=== PATIENT | female | born 1935 ===

== ENCOUNTER 2019-10-30 13:16 | Inpatient (IN) | payer MEDICARE, OTHER ==
[2019-10-30 17:49] VITALS: BP 157/73
[2019-10-30] MEDS ORDERED: Magnesium Hydroxide (MOM) 30 mL UDC PO PRN (17:52)
[2019-10-30] MEDS ORDERED: Maalox 30 mL Cup PO PRN (17:52)
[2019-10-30] MEDS: Atorvastatin Calcium 10 MG TAB PO SCH (20:59)
[2019-10-31] MEDS: Multivitamin Tab PO SCH (08:27)
[2019-10-31 13:50] LABS: CHOLESTEROL 313 mg/dL (<200); HDL -HIGH DENSITY LIPOPROTEIN 49 mg/dL (23-92); TRIGLYCERIDES 216 mg/dL (<150)
--- NOTE | 2019-10-31 14:49 | Psychiatric Evaluation ---
DATE OF SERVICE: 10/31/2019 IDENTIFYING DATA: The patient is an 84-year-old woman living by herself. Information obtained by directly interviewing the patient as well as reviewing the admission papers. JUSTIFICATION OF HOSPITALIZATION: The patient is admitted on a voluntary basis in view of her acute psychosis, confusion and disorientation. CHIEF COMPLAINT: "I don't know, they brought me in here." HISTORY OF PRESENT ILLNESS: This is the first psychiatric hospitalization for this patient who is reported to have been medicated with 5 mg 3 times a day of the diazepam and 50 mg of the Seroquel at night time. The patient is reporting that she has been feeling very dizzy and has been losing control and has been forgetting a lot. The patient during the interview has been repeating the same thing and has been very confused. The patient has been having difficult time to recall what type of work she was doing and then who she was living with, that tells me that most of her family is in [place] in [place]. Sleep and appetite prior to the hospitalization are reported to be fair. PAST PSYCHIATRIC HISTORY: The patient denies any prior psychiatric hospitalizations or treatment. MEDICAL HISTORY: Physical examination is requested, done by Dr. Bill. SUBSTANCE ABUSE HISTORY: None. SOCIAL HISTORY: The patient is living by herself. PHYSICAL OR SEXUAL ABUSE HISTORY: None. LEGAL PROBLEMS: None at this time. MENTAL STATUS EXAMINATION: The patient is an 84-year-old woman looking her stated age, cooperative. Eye contact is fair. Speech is noted to be coherent, but the patient goes on a tangent and the patient is acutely anxious, confused and disoriented. The patient is aware that she is in the hospital, but could not figure it out why and how long she has been in here. Attention span and concentration are noted to be poor at this time. Short-term memory is noted to be very poor. Long-term memory seems to be fair. The patient is stating that she is working with the lead worker of housekeeping and laundry and could not figure it out where they have gone. The patient is not suicidal or homicidal at this time, but the patient has paranoia, but denies any command hallucinations. No visual hallucinations are noted. The patient appears to be of average intelligence. DIAGNOSTIC IMPRESSION: AXIS I: Psychotic disorder, not otherwise specified. AXIS IB: Dementia and behavioral changes secondary trait. AXIS II: None. AXIS III: Hyperlipidemia, hypertension. IMMEDIATE TREATMENT PLAN: The patient's Seroquel is going to be decreased from 50 mg to 25 mg and the diazepam is going to be decreased from 5 mg 3 times a day to 2 mg twice a day and the patient is going to be closely monitored. I encouraged her to verbalize the concerns rather than to act out. Once stabilized, the patient is going to be discharged to the long-term facility. [facility]# [id number]
--- NOTE | 2019-10-31 14:56 | History and Physical ---
History of Present Illness - HPI Chief Complaint: Psychosis HPI: * Patient transferred from [facility] * Diagnoses with Acute Psychosis due to Advanced Dementia Vital Signs: Last Vital Signs Temp 97.9 F 10/31/19 05:53 Pulse 62 10/31/19 08:27 Resp 18 10/31/19 05:53 BP 140/74 10/31/19 08:27 Pulse Ox 97 10/31/19 05:53 Past Medical History Cardiovascular: Report: HTN, Hyperlipidemia Pulmonary: Report: No Pertinent Hx OUT OF TOWN COLLECTION CLERK: Report: Dementia GI: Report: No Pertinent Hx Psych: Report: Psychosis Musculoskeletal: Report: No Pain Rheumatologic: Report: No pertinent Hx Infectious Disease: Report: No Pertinent Hx Renal/: Report: No Pertinent Hx Endocrine: Report: No Pertinent Hx Dermatology: Report: No Pertinent Hx - Past Surgical History Past Surgical History: No pertinent Hx Family Medical History - Family Member Mother History Unknown: Yes Social History Smoke: No Alcohol: None Drugs: None Lives: [facility] - Medications Home Medications: Home Medication Medication Instructions Recorded Type Atorvastatin Calcium [Lipitor] PO HS 10/30/19 History Diazepam [Valium] 5 mg PO TID 10/30/19 History Losartan Potassium 50 mg PO 10/30/19 History Metoprolol Tartrate [Lopressor] 50 mg PO Q12HR 10/30/19 History QUEtiapine Fumarate [SEROquel] 50 mg PO HS 10/30/19 History - Allergies Allergies/Adverse Reactions: Allergies Allergy/AdvReac Type Severity Reaction Status Date / Time No Known Allergies Allergy Unverified 10/30/19 17:48 Review of Systems - Review of Systems Constitutional: Report: No Significant Eyes: Report: No Significant ENT: Report: No Significant Respiratory: Report: No Significant Cardiovascular: Report: No Significant Gastrointestinal: Report: No Significant Genitourinary: Report: No Significant Musculoskeletal: Report: No Significant Skin: Report: No Significant Neurological: Report: No Significant Physical Exam - Physical Exam HEENT: Report: Ears Nose Throat within normal limits, Pharnyx within normal limits Neck: Report: Within normal limits Cardiovascular Systems: Report: Regular, Rate and Rhythm, no murmurs noted Respiratory: Report: Clear to Auscultation of lung espinosa, Breath Sounds are within normal limits Abdomen: Report: Non-tender to palpation, Bowel Sounds are within normal limits Back: Report: Inspection of back is within normal limits. Extremities: Report: Non-tender to palpation., Patient had full range of motion , No pedal edema was noted on inspection Skin: Report: Color of skin is within normal limits, Warm, Dry, No Rashes noted of the skin Neuro/Psych: Report: CN II-XII intact, No motor deficit, No sensory deficit, No new focal deficits - Lab Results All Lab Results last 24 hours: Laboratory Results - last 24 hr 10/30/19 12:11 Triglycerides 216 H Cholesterol 313 H LDL Cholesterol Direct 216 H HDL Cholesterol 49 - Assessment Assessment: * Acute Psychosis * Dementia * Hypertension * Hyperlipidemia - Plan Plan: * Admitted to Geropsych Unit * Continue home meds * Obtain Psych Consult * Obtain labs Cranial Nerve Assessment - CRANIAL NERVES alcohol swab:: Yes Distinguishes movements in peripheral field.:: Yes up, down, sideways:: Yes on forehead, cheeks and chin, chews symmetrically:: Yes FACIAL VII: upper: Frowns Symmetrically:: Yes FACIAL VII: Lower: Smiles Symmetrically:: Yes both ears:: Yes GLOSS-PHARYNGEAL IX: Has gag reflex:: Yes VAGUS X: Can make guttural sounds:: Yes ACCESSORY XI: Shrugs shoulders symmetrically:: Yes tremors or fasciculation's:: Yes - MOTOR spasticity, cogwheel, atrophy, tremor, asterixis, other: Yes - COORDINATION Finger to nose, heel to knowles, RONNY, gait, Romberg: Yes - SENSORY signs, Brudzinski, Kernig, neck rigidity:: Yes - REFLEXES Brachioradials Right:: Yes Brachioradials Left:: Yes Biceps Right:: Yes Biceps Left:: Yes Triceps Right:: Yes Triceps Left:: Yes Knee Right:: Yes Knee Left:: Yes Ankle Right:: Yes Ankle Left:: Yes Babinski Right:: No Babinski Left:: No
[2019-10-31] MEDS: Atorvastatin Calcium 10 MG TAB PO SCH (21:33)
[2019-11-01] MEDS: Multivitamin Tab PO SCH (08:45)
[2019-11-01 11:15] LABS: POTASSIUM SERUM 4.1 mmol/L (3.5-5.1); RED BLOOD COUNT 5.34 MIL/uL (4.2-6.2); WHITE BLOOD COUNT 6.9 K/uL (4.8-10.8)
[2019-11-01 11:16] LABS: BILIRUBIN,TOTAL 0.6 mg/dL (0.0-1.0); CALCIUM SERUM 9.6 mg/dL (8.4-10.2); CREATININE - SERUM 0.84 mg/dL (0.70-1.30); TOTAL PROTEIN,SERUM 7.2 g/dL (6.4-8.3)
[2019-11-01 11:22] LABS: HEMATOCRIT 43.3 % (41.0-60); HEMOGLOBIN 13.8 gm/dL (12-16); MEAN CELL VOLUME 81.1 fl (81-100); MEAN CORPUSCULAR HEMOGLOBIN 25.9 pg (27.0-31.0)
[2019-11-01 11:23] LABS: % BASOPHILS 0.4 % (0.0-2.0); % EOSINOPHILS 1.6 % (0.0-5.0); % LYMPHOCYTES 38.9 % (20.0-50.0); % MONOCYTES 3.7 % (2.0-10.0); % NEUTROPHILS 55.4 % (40.0-80.0); EOSINOPHILE ABSOLUTE 0.1 Th/cmm (0.1-0.4); LYMPHOCYTE ABSOLUTE 2.7 Th/cmm (1.5-3.0); MEAN CORPUSCULAR HGB CONC 31.9 pg (28.0-36.0); MONOCYTE ABSOLUTE 0.3 Th/cmm (0.3-1.0); NEUTROPHILE ABSOLUTE 3.8 Th/cmm (1.8-8.0); PLATELET COUNT 255 Th/cmm (150-400)
--- NOTE | 2019-11-01 12:14 | Consultation ---
DATE OF CONSULTATION: 11/01/2019 TYPE OF CONSULTATION: Psychology HISTORY OF PRESENT ILLNESS: The patient is an 84-year-old female. The following is by review of the record as well as by the patient's self-report. The patient is being admitted on a voluntary basis due to psychosis, confusion and disorientation. According to record review, the patient lives by herself; however, the record indicates the patient is . Upon interview, the patient states that she does not know why she was brought into the hospital. The patient does report that she had been getting dizzy. Staff reports the patient is confused and forgetful. During the interview, the patient continued to repeat the same response to different clinical questions. She denied any suicidal ideation, plan or intention. PAST MEDICAL HISTORY: Please see history and physical by Dr. Bill. PAST PSYCHIATRIC HISTORY: Records are unavailable. Details are unknown. SUBSTANCE ABUSE HISTORY: The patient denied any history of alcohol, tobacco, or drug use. BRIEF PSYCHOSOCIAL HISTORY: According to the patient, she is ; however, the patient was unable to provide any information as to where she lives or who she lives with. The patient did not answer questions about having any children or grandchildren. The patient states that she is retired. She did not answer the questions about her previous occupational history or educational history. The patient did not answer questions about history of physical or sexual abuse or current legal problems. The patient states that she is a [employer], but not devout. MENTAL STATUS EXAMINATION: The patient appears to be older than her stated age. The patient's attitude is cooperative. Eye contact is fair. The patient is reaching out with her hand touching or attempting to touch this food writer. Speech is slow and soft. The patient is responding somewhat coherently to the clinical questions, but is confused. Thought process shows to be tangential. Mood is euthymic. Affect is broad. The patient denies any suicidal ideation, plan or intention. She denied any auditory or visual hallucinations or any delusions. The patient does not know why she is being hospitalized. The patient's behavior has been redirectable. Impulse control is intact. Concentration is poor. The patient is unable to sustain focus and attention. Short term memory is poor. Long-term memory seems to be poor. Sensorium is alert and oriented to self and place only. The patient seems to be of average intelligence. There are apparent cognitive deficits with respect to memory and ability to concentrate. The patient is distractible. The patient did not participate in the interpretation of proverbs. Insight is poor. Judgment is compromised. DIAGNOSTIC IMPRESSION: AXIS I: 1. Provisional diagnosis of psychotic disorder, not otherwise specified. 2. Provisional diagnosis of dementia with behavioral disturbance. AXIS II: Deferred. AXIS III: Per Dr. Bill. TREATMENT PLAN: The patient has been seen by Dr. Meyers for psychiatric evaluation and for the management of the patient's psychotropic medications. According to the attending psychiatrist, the patient's Seroquel is being decreased from 50 mg to 25 mg and the diazepam is going to be decreased from 5 mg 3 times a day to 2 mg a day. We will provide reality orientation, differentiation and integration. We will provide coping strategies for phase of life issues. We will provide motivational enhancement for the patient to become compliant and stay compliant with all aspects of her care and treatment. The patient's placement will be discussed with the attending psychiatrist, disease case manager and the family. Of note, the patient is being encouraged for possible placement in a intermediate facility versus returning home. We will follow up in 2-3 days to continue the present treatment if the patient remains admitted on the unit and is able to benefit from psychology services. Thank you, Dr. Meyers for this consult and the opportunity to participate with you in this patient's care. JOB# [id number] AURELIO
--- NOTE | 2019-11-01 16:44 | Progress Notes ---
DATE: 11/01/2019 SUBJECTIVE: Staff was spoken to. The patient is interviewed. Mood is noted to be depressed. Affect is constricted. The patient is very tearful and crying this morning. Insight and judgment at this time are noted to be still impaired. Impulse control is noted to be limited. Coping skills are noted to be limited. The patient has been having difficult time to cope with the stress. No side effects to the medications are noted. The patient has been presenting with anxiety and is stating that she does not have any family over here. ASSESSMENT: The patient is still depressed and demented. PLAN: To continue the patient with the supportive therapy and start the patient with the Lexapro 5 mg in the morning for her depression and closely monitor the patient. JOB# [id number]
[2019-11-01] MEDS: Atorvastatin Calcium 10 MG TAB PO SCH (21:02)
[2019-11-02] MEDS: Multivitamin Tab PO SCH (08:32)
[2019-11-02] MEDS: Escitalopram Oxalate 5 mg Tab PO SCH (08:34)
--- NOTE | 2019-11-02 11:45 | Progress Notes ---
DATE: 11/02/2019 SUBJECTIVE: Staff was spoken to. The patient is interviewed. Mood is noted to be anxious and depressed. Affect is constricted. Insight and judgment at this time are noted to be still impaired. Impulse control is noted to be limited. Coping skills are noted to be limited. The patient has been having difficult time to cope with the stress. The patient was initially on 5 mg 3 times a day of Valium. I am trying to slowly taper the Valium; although the patient is currently on 2 mg in the morning. No side effects are noted. The patient is still depressed and confused. The patient is currently placed on Lexapro. The patient has been able to tolerate the medications. The patient has no place to return to. The patient is also very forgetful at this time. PLAN: To continue the patient with the supportive therapy and continue current medications. JOB# [id number]
--- NOTE | 2019-11-02 13:43 | Internal Medicine Prog Note ---
Internal Medicine Subjective - Subjective Service Date: 11/02/19 Patient seen and examined:: without staff Patient is:: awake Per staff patient has:: no adverse event, no episodes of fall Internal Medicine Objective - Results Result Diagrams: 11/01/19 09:49 11/01/19 09:49 Recent Labs: Laboratory Last Values WBC 6.9 K/uL (4.8-10.8) 11/01/19 09:49 RBC 5.34 MIL/uL (4.2-6.2) 11/01/19 09:49 Hgb 13.8 gm/dL (12-16) 11/01/19 09:49 Hct 43.3 % (41.0-60) 11/01/19 09:49 MCV 81.1 fl (81-100) 11/01/19 09:49 MCH 25.9 pg (27.0-31.0) L 11/01/19 09:49 MCHC Differential 31.9 pg (28.0-36.0) 11/01/19 09:49 RDW 15.0 % (11.5-20.0) 11/01/19 09:49 Plt Count 255 Th/cmm (150-400) 11/01/19 09:49 MPV 8.4 fl 11/01/19 09:49 Neutrophils % 55.4 % (40.0-80.0) 11/01/19 09:49 Lymphocytes % 38.9 % (20.0-50.0) 11/01/19 09:49 Monocytes % 3.7 % (2.0-10.0) 11/01/19 09:49 Eosinophils % 1.6 % (0.0-5.0) 11/01/19 09:49 Basophils % 0.4 % (0.0-2.0) 11/01/19 09:49 Sodium 141 mmol/L (136-145) 11/01/19 09:49 Potassium 4.1 mmol/L (3.5-5.1) 11/01/19 09:49 Chloride 105 mmol/L (98-107) 11/01/19 09:49 Carbon Dioxide 30 mmol/L (23-29) H 11/01/19 09:49 Anion Gap 10 (5-15) 11/01/19 09:49 BUN 20 mg/dL (8-21) 11/01/19 09:49 Creatinine 0.84 mg/dL (0.70-1.30) 11/01/19 09:49 Glucose 134 mg/dL (70-99) H 11/01/19 09:49 Calcium 9.6 mg/dL (8.4-10.2) 11/01/19 09:49 Total Bilirubin 0.6 mg/dL (0.0-1.0) 11/01/19 09:49 AST 12 U/L (10-37) 11/01/19 09:49 ALT 17 U/L (12-78) 11/01/19 09:49 Alkaline Phosphatase 69 U/L (46-116) 11/01/19 09:49 Total Protein 7.2 g/dL (6.4-8.3) 11/01/19 09:49 Albumin 3.7 g/dL (3.4-5.0) 11/01/19 09:49 Triglycerides 216 mg/dL (<150) H 10/30/19 12:11 Cholesterol 313 mg/dL (<200) H 10/30/19 12:11 LDL Cholesterol Direct 216 mg/dL (75-193) H 10/30/19 12:11 HDL Cholesterol 49 mg/dL (23-92) 10/30/19 12:11 - Physical Exam Vitals and I&O: Vital Signs Temp 97.5 F 11/02/19 06:41 Pulse 65 11/02/19 08:31 Resp 19 11/02/19 06:41 BP 134/70 11/02/19 08:31 Pulse Ox 97 11/02/19 06:41 Intake & Output 11/01/19 11/02/19 11/02/19 18:59 06:59 18:59 Intake Total 120 Balance 120 Intake: Oral 120 Other: # Voids 1 # Bowel Movements 0 Active Medications: Current Medications Acetaminophen (Tylenol) 650 mg PO Q4H PRN PRN Reason: Pain (Mild 1-3) Stop: 12/29/19 17:51 Al Hydrox/Mg Hydrox/Simethicone (Maalox) 30 ml PO Q4HR PRN PRN Reason: GI DISTRESS Stop: 12/29/19 17:51 Atorvastatin Calcium (Lipitor) 20 mg PO HS COOKIE Stop: 12/29/19 20:59 Last Admin: 11/01/19 21:02 Dose: 20 mg Diazepam (Valium) 2 mg PO DAILY COOKIE; Protocol Stop: 01/01/20 08:59 Last Admin: 11/02/19 08:34 Dose: 2 mg Escitalopram Oxalate (Lexapro) 5 mg PO DAILY COOKIE; Protocol Stop: 01/01/20 08:59 Last Admin: 11/02/19 08:34 Dose: 5 mg Lorazepam (Ativan) 0.5 mg PO Q4HR PRN; Protocol PRN Reason: Anxiety Stop: 11/29/19 17:51 Losartan Potassium (Cozaar) 50 mg PO DAILY COOKIE Stop: 12/30/19 08:59 Last Admin: 11/02/19 08:29 Dose: 50 mg Magnesium Hydroxide (Milk Of Magnesia) 30 ml PO HS PRN PRN Reason: Constipation Metoprolol Tartrate (Lopressor) 50 mg PO Q12HR COOKIE Stop: 12/29/19 20:59 Last Admin: 11/02/19 08:31 Dose: 50 mg Multivitamins/Vitamin C (Theragran) 1 tab PO DAILY COOKIE Stop: 12/30/19 08:59 Last Admin: 11/02/19 08:32 Dose: 1 tab Quetiapine Fumarate (Seroquel) 25 mg PO HS COOKIE; Protocol Stop: 12/29/19 20:59 Last Admin: 11/01/19 21:03 Dose: 25 mg General: weak HEENT: NC/AT, PERRLA Neck: Supple, No JVD Lungs: CTAB Cardiovascular: RRR, Normal S1, Normal S2 Abdomen: soft, non-tender Extremities: clear Internal Medicine Assmt/Plan - Assessment Assessment: 1. Dementia 2. HTN 3. HLD - Plan Plan: continue BP meds continue supportive care reviewed medical records d/w r.n.
[2019-11-02] MEDS: Atorvastatin Calcium 10 MG TAB PO SCH (21:03)
[2019-11-03] MEDS: Multivitamin Tab PO SCH (08:08)
[2019-11-03] MEDS: Escitalopram Oxalate 5 mg Tab PO SCH (08:10)
--- NOTE | 2019-11-03 10:24 | Progress Notes ---
DATE: 11/02/2019 PSYCHOLOGY PROGRESS NOTE SUBJECTIVE: The patient is seen in her room, sitting on the edge of her bed. The patient presents as friendly and interactive. Case is discussed with staff. The patient appears to be somewhat anxious about her hospitalization. The patient denied any hopelessness or helplessness. However, the patient feels she does not need to be hospitalized. Staff reports the patient is compliant with her medication. The patient presents with periods of confusion and is forgetful. OBJECTIVE: Mood is anxious. Affect is mood congruent and reactive. Thought process shows to be linear and concrete with periods of confusion. The patient denied any suicidal ideation, plan or intention. She denies any hallucinations or delusions. The patient is requesting to be discharged and asked repeatedly when she will be discharged. This is deferred to the attending psychiatrist. The patient's behavior has been compliant with her medication and redirectable. ASSESSMENT: The patient's impulse control is limited, but improving. The patient's confusion as well as anxiety and moderate depression persist. PLAN: The patient is continued with supportive psychotherapy, which included reality orientation, differentiation and integration. We provided coping strategies for phase of life issues as well. According to the attending psychiatrist, the patient is being slowly tapered from the Valium. We will monitor the patient closely. We will continue to provide remotivation for the patient to stay compliant with all aspects of her care and treatment as well as to accept possible placement in a long-term facility versus returning home. This outcome will be discussed with the attending psychiatrist, continuous pillowcase cutter and with the family. We will follow up in 2-3 days to continue the present treatment if the patient remains admitted on the unit. JOB# [id number] AURELIO
--- NOTE | 2019-11-03 13:26 | Internal Medicine Prog Note ---
Internal Medicine Subjective - Subjective Service Date: 11/03/19 Patient seen and examined:: without staff Patient is:: awake Per staff patient has:: no adverse event, no episodes of fall Internal Medicine Objective - Results Result Diagrams: 11/01/19 09:49 11/01/19 09:49 Recent Labs: Laboratory Last Values WBC 6.9 K/uL (4.8-10.8) 11/01/19 09:49 RBC 5.34 MIL/uL (4.2-6.2) 11/01/19 09:49 Hgb 13.8 gm/dL (12-16) 11/01/19 09:49 Hct 43.3 % (41.0-60) 11/01/19 09:49 MCV 81.1 fl (81-100) 11/01/19 09:49 MCH 25.9 pg (27.0-31.0) L 11/01/19 09:49 MCHC Differential 31.9 pg (28.0-36.0) 11/01/19 09:49 RDW 15.0 % (11.5-20.0) 11/01/19 09:49 Plt Count 255 Th/cmm (150-400) 11/01/19 09:49 MPV 8.4 fl 11/01/19 09:49 Neutrophils % 55.4 % (40.0-80.0) 11/01/19 09:49 Lymphocytes % 38.9 % (20.0-50.0) 11/01/19 09:49 Monocytes % 3.7 % (2.0-10.0) 11/01/19 09:49 Eosinophils % 1.6 % (0.0-5.0) 11/01/19 09:49 Basophils % 0.4 % (0.0-2.0) 11/01/19 09:49 Sodium 141 mmol/L (136-145) 11/01/19 09:49 Potassium 4.1 mmol/L (3.5-5.1) 11/01/19 09:49 Chloride 105 mmol/L (98-107) 11/01/19 09:49 Carbon Dioxide 30 mmol/L (23-29) H 11/01/19 09:49 Anion Gap 10 (5-15) 11/01/19 09:49 BUN 20 mg/dL (8-21) 11/01/19 09:49 Creatinine 0.84 mg/dL (0.70-1.30) 11/01/19 09:49 Glucose 134 mg/dL (70-99) H 11/01/19 09:49 Calcium 9.6 mg/dL (8.4-10.2) 11/01/19 09:49 Total Bilirubin 0.6 mg/dL (0.0-1.0) 11/01/19 09:49 AST 12 U/L (10-37) 11/01/19 09:49 ALT 17 U/L (12-78) 11/01/19 09:49 Alkaline Phosphatase 69 U/L (46-116) 11/01/19 09:49 Total Protein 7.2 g/dL (6.4-8.3) 11/01/19 09:49 Albumin 3.7 g/dL (3.4-5.0) 11/01/19 09:49 Triglycerides 216 mg/dL (<150) H 10/30/19 12:11 Cholesterol 313 mg/dL (<200) H 10/30/19 12:11 LDL Cholesterol Direct 216 mg/dL (75-193) H 10/30/19 12:11 HDL Cholesterol 49 mg/dL (23-92) 10/30/19 12:11 - Physical Exam Vitals and I&O: Vital Signs Temp 97.2 F 11/03/19 06:07 Pulse 68 11/03/19 08:09 Resp 18 11/03/19 06:07 BP 134/56 11/03/19 08:09 Pulse Ox 97 11/03/19 06:07 Intake & Output 11/02/19 11/03/19 11/03/19 18:59 06:59 18:59 Intake Total 1000 240 Balance 1000 240 Intake: Oral 1000 240 Other: # Voids 4 2 # Bowel Movements 1 Active Medications: Current Medications Acetaminophen (Tylenol) 650 mg PO Q4H PRN PRN Reason: Pain (Mild 1-3) Stop: 12/29/19 17:51 Al Hydrox/Mg Hydrox/Simethicone (Maalox) 30 ml PO Q4HR PRN PRN Reason: GI DISTRESS Stop: 12/29/19 17:51 Atorvastatin Calcium (Lipitor) 20 mg PO HS [facility] Stop: 12/29/19 20:59 Last Admin: 11/02/19 21:03 Dose: 20 mg Diazepam (Valium) 2 mg PO DAILY [facility]; Protocol Stop: 01/01/20 08:59 Last Admin: 11/03/19 08:10 Dose: 2 mg Donepezil HCl (Aricept) 5 mg PO DAILY [facility] Stop: 01/03/20 08:59 Escitalopram Oxalate (Lexapro) 5 mg PO DAILY [facility]; Protocol Stop: 01/01/20 08:59 Last Admin: 11/03/19 08:10 Dose: 5 mg Lorazepam (Ativan) 0.5 mg PO Q4HR PRN; Protocol PRN Reason: Anxiety Stop: 11/29/19 17:51 Losartan Potassium (Cozaar) 50 mg PO DAILY [facility] Stop: 12/30/19 08:59 Last Admin: 11/03/19 08:09 Dose: 50 mg Magnesium Hydroxide (Milk Of Magnesia) 30 ml PO HS PRN PRN Reason: Constipation Memantine (Namenda) 5 mg PO BID [facility] Stop: 01/02/20 16:59 Metoprolol Tartrate (Lopressor) 50 mg PO Q12HR [facility] Stop: 12/29/19 20:59 Last Admin: 11/03/19 08:08 Dose: 50 mg Multivitamins/Vitamin C (Theragran) 1 tab PO DAILY [facility] Stop: 12/30/19 08:59 Last Admin: 11/03/19 08:08 Dose: 1 tab Quetiapine Fumarate (Seroquel) 25 mg PO HS [facility]; Protocol Stop: 12/29/19 20:59 Last Admin: 11/02/19 21:05 Dose: 25 mg General: weak HEENT: NC/AT, PERRLA Neck: Supple, No JVD Lungs: CTAB Cardiovascular: RRR, Normal S1, Normal S2 Abdomen: soft, non-tender Extremities: clear Neurological: no change Internal Medicine Assmt/Plan - Assessment Assessment: 1. HTN 2. HLD 3. Dementia - Plan Plan: continue BP meds continue supportive care reviewed medical records d/w r.n. Nutritional Asmnt/Malnutr-PDOC - Dietary Evaluation Malnutrition Findings (Please click <Entered> for more info): Nutritional Asmnt/Malnutrition Start: 11/03/19 11: 47 Text: Status: Complete Freq: Protocol: Document 11/03/19 11:47 LEO (Rec: 11/03/19 11:49 [email or web address] [id number]) Nutritional Asmnt/Malnutrition Patient General Information Nutritional Screening Moderate Risk Diagnosis Acute Psychosis associated with Advanced Dementia Pertinent Medical Hx/Surgical Hx HTN, Hyperlipidemia, Dementia Subjective Information Pt is a 84-year-old female admitted from living by herself on 10/29 d/t acute psychosis associated with advanced dementia. Pt is eating an estimated 100% of meals Per Meal/Nutrition Activity Record. Dietary is currently providing an estimated 2150 kcals and 108 gm Pro to meet 100+% kcal and 100+% Pro needs. Anthropometrics HT: 53 WT: 144 LB (65.45 kg) BMI: 25.58 (Overweight) GI/ Skin Integrity GI: WNL, Soft, Non-tender BM: 11/01 x1 I/O: 1240/Not Noted Skin: WNL, Intact Oh: 21 Diet Order: Cardiac Estimated Energy Needs: ( Geriatric, CBW) 3866-4537 kcals (25-30 kcals/ kg) 65-80g Pro (1.0-1.2 g/kg) 3215-3126 ml (25-30 ml/kg) Current Diet Order/ Nutrition Support Cardiac Pertinent Medications Maalox, Lipitor, Valium, Cozaar, MOM (PRN), Theragran Pertinent Labs 10/31: Glucose 134, Cholesterol 313, Triglycerides 216, LDL 216 10/29: Glucose 119, Urine Ketones- trace Nutritional Hx/Data Height 1.6 m Height (Calculated Centimeters) 160.0 Current Weight (lbs) 65.317 kg Weight (Calculated Kilograms) 65.3 Weight (Calculated Grams) 78141.3 [place] Body Weight 115 LB (52.27 kg) % [place] Body Weight 125 Body Mass Index (BMI) 25.4 Weight Status Overweight GI Symptoms Last BM 11/01 x1 Skin Integrity/Comment: Skin: WNL, Intact Oh: 21 Current %PO Good (75-100%) Estimated Nutritional Goals BEE in Kcals: Using Current wt Calories/Kcals/Kg 25-30 Kcals Calculated 5300-4618 Protein: Using Current wt Protein g/k.0-1.2 Protein Calculated 65-80 Fluid: ml 2899-4568 ml (25-30 ml/kg) Nutritional Problem No current Nutrition Prob Problem No nutrition diagnosis at this time. Etiology N/A Signs/Symptoms: N/A Malnutrition Related to Morbid Obesity Malnutrition related to morbid obesity No Intervention/Recommendation Comments Continue Cardiac diet as tolerated. Expected Outcomes/Goals Expected Outcomes/Goals 1.PO intake to continue to meet >75% of estimated nutritional needs. 2.Monitor PO intake, wt, nutrition related labs, and skin integrity. 3.F/U as low risk in 7-10 days , 11/09-11/12.
--- NOTE | 2019-11-03 14:47 | Progress Notes ---
DATE: 11/03/2019 SUBJECTIVE: Staff was spoken to. The patient is interviewed. Mood is noted to be irritable. Affect is constricted. Insight and judgment at this time are noted to be still impaired. Impulse control is noted to be limited. The patient is isolative and withdrawn. The patient is pacing most of the time. The patient has poor short and long-term memory. The patient is not able to care for self. ASSESSMENT: The patient is demented and depressed. PLAN: To continue the patient with the Lexapro and add Namenda and Aricept to the current medications and follow the patient. JOB# [id number]
[2019-11-03] MEDS: Atorvastatin Calcium 10 MG TAB PO SCH (20:51)
[2019-11-04] MEDS: Escitalopram Oxalate 5 mg Tab PO SCH (09:05)
[2019-11-04] MEDS: Multivitamin Tab PO SCH (09:05)
--- NOTE | 2019-11-04 13:57 | Progress Notes ---
DATE: 11/04/2019 SUBJECTIVE: Staff was spoken to. The patient is interviewed. Mood is noted to be depressed. Affect is constricted. The patient's pulse rate is coming low and I have decided to discontinue the diazepam and then use the Ativan only on a p.r.n. basis. The patient is currently on lorazepam 0.5 mg every 6 hours p.r.n. and the patient is also receiving the Seroquel 25 mg at bedtime and that is also going to be changed to 12.5 mg and the patient is going to be closely monitored. ASSESSMENT: The patient is still confused and disoriented. PLAN: To continue the patient with current medications. I encouraged the patient to verbalize the concerns rather than to act out. JOB# [id number]
--- NOTE | 2019-11-04 18:31 | Internal Medicine Prog Note ---
Internal Medicine Subjective - Subjective Service Date: 11/04/19 Patient is:: awake Per staff patient has:: no adverse event, no episodes of fall Internal Medicine Objective - Results Result Diagrams: 11/01/19 09:49 11/01/19 09:49 Recent Labs: Laboratory Last Values WBC 6.9 K/uL (4.8-10.8) 11/01/19 09:49 RBC 5.34 MIL/uL (4.2-6.2) 11/01/19 09:49 Hgb 13.8 gm/dL (12-16) 11/01/19 09:49 Hct 43.3 % (41.0-60) 11/01/19 09:49 MCV 81.1 fl (81-100) 11/01/19 09:49 MCH 25.9 pg (27.0-31.0) L 11/01/19 09:49 MCHC Differential 31.9 pg (28.0-36.0) 11/01/19 09:49 RDW 15.0 % (11.5-20.0) 11/01/19 09:49 Plt Count 255 Th/cmm (150-400) 11/01/19 09:49 MPV 8.4 fl 11/01/19 09:49 Neutrophils % 55.4 % (40.0-80.0) 11/01/19 09:49 Lymphocytes % 38.9 % (20.0-50.0) 11/01/19 09:49 Monocytes % 3.7 % (2.0-10.0) 11/01/19 09:49 Eosinophils % 1.6 % (0.0-5.0) 11/01/19 09:49 Basophils % 0.4 % (0.0-2.0) 11/01/19 09:49 Sodium 141 mmol/L (136-145) 11/01/19 09:49 Potassium 4.1 mmol/L (3.5-5.1) 11/01/19 09:49 Chloride 105 mmol/L (98-107) 11/01/19 09:49 Carbon Dioxide 30 mmol/L (23-29) H 11/01/19 09:49 Anion Gap 10 (5-15) 11/01/19 09:49 BUN 20 mg/dL (8-21) 11/01/19 09:49 Creatinine 0.84 mg/dL (0.70-1.30) 11/01/19 09:49 Glucose 134 mg/dL (70-99) H 11/01/19 09:49 Calcium 9.6 mg/dL (8.4-10.2) 11/01/19 09:49 Total Bilirubin 0.6 mg/dL (0.0-1.0) 11/01/19 09:49 AST 12 U/L (10-37) 11/01/19 09:49 ALT 17 U/L (12-78) 11/01/19 09:49 Alkaline Phosphatase 69 U/L (46-116) 11/01/19 09:49 Total Protein 7.2 g/dL (6.4-8.3) 11/01/19 09:49 Albumin 3.7 g/dL (3.4-5.0) 11/01/19 09:49 Triglycerides 216 mg/dL (<150) H 10/30/19 12:11 Cholesterol 313 mg/dL (<200) H 10/30/19 12:11 LDL Cholesterol Direct 216 mg/dL (75-193) H 10/30/19 12:11 HDL Cholesterol 49 mg/dL (23-92) 10/30/19 12:11 - Physical Exam Vitals and I&O: Vital Signs Temp 98.4 F 11/04/19 14:00 Pulse 58 11/04/19 16:47 Resp 16 11/04/19 16:47 BP 130/81 11/04/19 16:47 Pulse Ox 98 11/04/19 16:47 Intake & Output 11/03/19 11/04/19 11/04/19 18:59 06:59 18:59 Intake Total 950 120 800 Balance 950 120 800 Intake: Oral 950 120 800 Other: # Voids 3 2 4 # Bowel Movements 1 0 0 Active Medications: Current Medications Acetaminophen (Tylenol) 650 mg PO Q4H PRN PRN Reason: Pain (Mild 1-3) Stop: 12/29/19 17:51 Last Admin: 11/03/19 16:06 Dose: 650 mg Al Hydrox/Mg Hydrox/Simethicone (Maalox) 30 ml PO Q4HR PRN PRN Reason: GI DISTRESS Stop: 12/29/19 17:51 Atorvastatin Calcium (Lipitor) 20 mg PO HS [facility] Stop: 12/29/19 20:59 Last Admin: 11/03/19 20:51 Dose: 20 mg Donepezil HCl (Aricept) 5 mg PO DAILY [facility] Stop: 01/03/20 08:59 Last Admin: 11/04/19 09:05 Dose: 5 mg Escitalopram Oxalate (Lexapro) 5 mg PO DAILY [facility]; Protocol Stop: 01/01/20 08:59 Last Admin: 11/04/19 09:05 Dose: 5 mg Lorazepam (Ativan) 0.5 mg PO Q4HR PRN; Protocol PRN Reason: Anxiety Stop: 11/29/19 17:51 Last Admin: 11/04/19 16:52 Dose: 0.5 mg Losartan Potassium (Cozaar) 50 mg PO DAILY [facility] Stop: 12/30/19 08:59 Last Admin: 11/04/19 09:05 Dose: Not Given Magnesium Hydroxide (Milk Of Magnesia) 30 ml PO HS PRN PRN Reason: Constipation Memantine (Namenda) 5 mg PO BID [facility] Stop: 01/02/20 16:59 Last Admin: 11/04/19 16:52 Dose: 5 mg Metoprolol Tartrate (Lopressor) 50 mg PO Q12HR [facility] Stop: 12/29/19 20:59 Last Admin: 11/04/19 09:06 Dose: Not Given Multivitamins/Vitamin C (Theragran) 1 tab PO DAILY [facility] Stop: 12/30/19 08:59 Last Admin: 11/04/19 09:05 Dose: 1 tab Quetiapine Fumarate (Seroquel) 12.5 mg PO HS [facility]; Protocol Stop: 01/03/20 20:59 General: weak HEENT: NC/AT, PERRLA Neck: Supple, No JVD Lungs: CTAB Cardiovascular: RRR, Normal S1, Normal S2 Abdomen: soft, non-tender Extremities: clear Neurological: no change Internal Medicine Assmt/Plan - Assessment Assessment: 1. HTN 2. HLD 3. Dementia - Plan Plan: continue cozaar and lopressor continue supportive care reviewed medical records d/w r.n. Nutritional Asmnt/Malnutr-PDOC - Dietary Evaluation Malnutrition Findings (Please click <Entered> for more info): Nutritional Asmnt/Malnutrition Start: 11/03/19 11: 47 Text: Status: Complete Freq: Protocol: Document 11/03/19 11:47 LEO (Rec: 11/03/19 11:49 LEO [id number]) Nutritional Asmnt/Malnutrition Patient General Information Nutritional Screening Moderate Risk Diagnosis Acute Psychosis associated with Advanced Dementia Pertinent Medical Hx/Surgical Hx HTN, Hyperlipidemia, Dementia Subjective Information Pt is a 84-year-old female admitted from living by herself on 10/29 d/t acute psychosis associated with advanced dementia. Pt is eating an estimated 100% of meals Per Meal/Nutrition Activity Record. Dietary is currently providing an estimated 2150 kcals and 108 gm Pro to meet 100+% kcal and 100+% Pro needs. Anthropometrics HT: 53 WT: 144 LB (65.45 kg) BMI: 25.58 (Overweight) GI/ Skin Integrity GI: WNL, Soft, Non-tender BM: 11/01 x1 I/O: 1240/Not Noted Skin: WNL, Intact Oh: 21 Diet Order: Cardiac Estimated Energy Needs: ( Geriatric, CBW) 5153-6187 kcals (25-30 kcals/ kg) 65-80g Pro (1.0-1.2 g/kg) 6461-7386 ml (25-30 ml/kg) Current Diet Order/ Nutrition Support Cardiac Pertinent Medications Maalox, Lipitor, Valium, Cozaar, MOM (PRN), Theragran Pertinent Labs 10/31: Glucose 134, Cholesterol 313, Triglycerides 216, LDL 216 10/29: Glucose 119, Urine Ketones- trace Nutritional Hx/Data Height 1.6 m Height (Calculated Centimeters) 160.0 Current Weight (lbs) 65.317 kg Weight (Calculated Kilograms) 65.3 Weight (Calculated Grams) 68149.3 [place] Body Weight 115 LB (52.27 kg) % [place] Body Weight 125 Body Mass Index (BMI) 25.4 Weight Status Overweight GI Symptoms Last BM 11/01 x1 Skin Integrity/Comment: Skin: WNL, Intact Oh: 21 Current %PO Good (75-100%) Estimated Nutritional Goals BEE in Kcals: Using Current wt Calories/Kcals/Kg 25-30 Kcals Calculated 6953-4865 Protein: Using Current wt Protein g/k.0-1.2 Protein Calculated 65-80 Fluid: ml 3552-1276 ml (25-30 ml/kg) Nutritional Problem No current Nutrition Prob Problem No nutrition diagnosis at this time. Etiology N/A Signs/Symptoms: N/A Malnutrition Related to Morbid Obesity Malnutrition related to morbid obesity No Intervention/Recommendation Comments Continue Cardiac diet as tolerated. Expected Outcomes/Goals Expected Outcomes/Goals 1.PO intake to continue to meet >75% of estimated nutritional needs. 2.Monitor PO intake, wt, nutrition related labs, and skin integrity. 3.F/U as low risk in 7-10 days , 11/09-11/12.
[2019-11-04] MEDS: Atorvastatin Calcium 10 MG TAB PO SCH (20:48)
[2019-11-05] MEDS: Escitalopram Oxalate 5 mg Tab PO SCH (08:42)
[2019-11-05] MEDS: Multivitamin Tab PO SCH (08:43)
--- NOTE | 2019-11-05 11:20 | Progress Notes ---
DATE: 11/04/2019 PSYCHOLOGY PROGRESS NOTE SUBJECTIVE: The patient is seen and is interviewed. Case is discussed with staff. The patient is in the activity/dining area. The patient presents as friendly and cooperative. Speech is soft and quiet. The patient is mumbling, but responding to the clinical questions at times coherently and at other times confused and irrelevantly. The patient states that she is waiting to be returned home and is asking when will she be discharged. OBJECTIVE: Mood is dysphoric. Affect is mood congruent. Thought process shows to be confused with periods of clarity. The patient denied any hallucinations or delusions. She denies any suicidal thoughts. The patient's behavior has been compliant with medication and treatment. ASSESSMENT: The patient's confusion and disorientation persists. PLAN: The patient is continued on her current medications. The attending psychiatrist reports the patient is being discontinued on routine diazepam and that Ativan will be on a p.r.n. basis. Also, Seroquel 25 mg at bedtime is being changed to 12.5 mg. The patient will be closely monitored. We provided reality orientation, differentiation and integration. We provided coping strategies for phase of life issues. This typewriter ribbon winder discussed with the patient the possible placement in a custodial facility versus returning home. The patient is fixated on returning home versus placement. This will be discussed with the attending psychiatrist as well as the case management manager and the patient's daughter who is involved in her care. According to the social media marketer's notes, the patient's daughter was contacted and there was an agreement for possible placement for the patient at [facility] when the patient has stabilized. We will follow up in 2-3 days to continue the present treatment if the patient remains on the unit and is able to benefit from psychology services. JOB# [id number] AURELIO
--- NOTE | 2019-11-05 11:21 | Progress Notes ---
DATE: 11/05/2019 PSYCHIATRIC PROGRESS NOTE SUBJECTIVE: Staff was spoken to. The patient is interviewed. Mood is noted to be anxious. Insight and judgment at this time are noted to be still impaired. Impulse control is noted to be limited. The patient is very intrusive and has been pacing on the unit. The patient is still confused and depressed. The patient denies any command hallucinations. No visual hallucinations are noted. ASSESSMENT: The patient is still depressed and demented. PLAN: To continue the patient with the current medications and await for placement of this patient. JOB# [id number]
[2019-11-05 11:53] LABS: A1C 6.1
--- NOTE | 2019-11-05 15:36 | Internal Medicine Prog Note ---
Internal Medicine Subjective - Subjective Service Date: 11/05/19 Patient is:: awake Per staff patient has:: no adverse event, no episodes of fall Internal Medicine Objective - Results Result Diagrams: 11/01/19 09:49 11/01/19 09:49 Recent Labs: Laboratory Last Values WBC 6.9 K/uL (4.8-10.8) 11/01/19 09:49 RBC 5.34 MIL/uL (4.2-6.2) 11/01/19 09:49 Hgb 13.8 gm/dL (12-16) 11/01/19 09:49 Hct 43.3 % (41.0-60) 11/01/19 09:49 MCV 81.1 fl (81-100) 11/01/19 09:49 MCH 25.9 pg (27.0-31.0) L 11/01/19 09:49 MCHC Differential 31.9 pg (28.0-36.0) 11/01/19 09:49 RDW 15.0 % (11.5-20.0) 11/01/19 09:49 Plt Count 255 Th/cmm (150-400) 11/01/19 09:49 MPV 8.4 fl 11/01/19 09:49 Neutrophils % 55.4 % (40.0-80.0) 11/01/19 09:49 Lymphocytes % 38.9 % (20.0-50.0) 11/01/19 09:49 Monocytes % 3.7 % (2.0-10.0) 11/01/19 09:49 Eosinophils % 1.6 % (0.0-5.0) 11/01/19 09:49 Basophils % 0.4 % (0.0-2.0) 11/01/19 09:49 Sodium 141 mmol/L (136-145) 11/01/19 09:49 Potassium 4.1 mmol/L (3.5-5.1) 11/01/19 09:49 Chloride 105 mmol/L (98-107) 11/01/19 09:49 Carbon Dioxide 30 mmol/L (23-29) H 11/01/19 09:49 Anion Gap 10 (5-15) 11/01/19 09:49 BUN 20 mg/dL (8-21) 11/01/19 09:49 Creatinine 0.84 mg/dL (0.70-1.30) 11/01/19 09:49 Glucose 134 mg/dL (70-99) H 11/01/19 09:49 Calcium 9.6 mg/dL (8.4-10.2) 11/01/19 09:49 Total Bilirubin 0.6 mg/dL (0.0-1.0) 11/01/19 09:49 AST 12 U/L (10-37) 11/01/19 09:49 ALT 17 U/L (12-78) 11/01/19 09:49 Alkaline Phosphatase 69 U/L (46-116) 11/01/19 09:49 Total Protein 7.2 g/dL (6.4-8.3) 11/01/19 09:49 Albumin 3.7 g/dL (3.4-5.0) 11/01/19 09:49 Triglycerides 216 mg/dL (<150) H 10/30/19 12:11 Cholesterol 313 mg/dL (<200) H 10/30/19 12:11 LDL Cholesterol Direct 216 mg/dL (75-193) H 10/30/19 12:11 HDL Cholesterol 49 mg/dL (23-92) 10/30/19 12:11 - Physical Exam Vitals and I&O: Vital Signs Temp 97.2 F 11/05/19 14:00 Pulse 55 11/05/19 14:00 Resp 20 11/05/19 14:00 BP 158/76 11/05/19 14:00 Pulse Ox 98 11/05/19 14:00 Intake & Output 11/04/19 11/05/19 11/05/19 18:59 06:59 18:59 Intake Total 800 240 Balance 800 240 Intake: Oral 800 240 Other: # Voids 4 2 # Bowel Movements 0 0 Active Medications: Current Medications Acetaminophen (Tylenol) 650 mg PO Q4H PRN PRN Reason: Pain (Mild 1-3) Stop: 12/29/19 17:51 Last Admin: 11/03/19 16:06 Dose: 650 mg Al Hydrox/Mg Hydrox/Simethicone (Maalox) 30 ml PO Q4HR PRN PRN Reason: GI DISTRESS Stop: 12/29/19 17:51 Atorvastatin Calcium (Lipitor) 20 mg PO HS [facility] Stop: 12/29/19 20:59 Last Admin: 11/04/19 20:48 Dose: 20 mg Donepezil HCl (Aricept) 5 mg PO DAILY [facility] Stop: 01/03/20 08:59 Last Admin: 11/05/19 08:42 Dose: 5 mg Escitalopram Oxalate (Lexapro) 5 mg PO DAILY [facility]; Protocol Stop: 01/01/20 08:59 Last Admin: 11/05/19 08:42 Dose: 5 mg Lorazepam (Ativan) 0.5 mg PO Q4HR PRN; Protocol PRN Reason: Anxiety Stop: 11/29/19 17:51 Last Admin: 11/04/19 16:52 Dose: 0.5 mg Losartan Potassium (Cozaar) 50 mg PO DAILY [facility] Stop: 12/30/19 08:59 Last Admin: 11/05/19 08:43 Dose: 50 mg Magnesium Hydroxide (Milk Of Magnesia) 30 ml PO HS PRN PRN Reason: Constipation Memantine (Namenda) 5 mg PO BID [facility] Stop: 01/02/20 16:59 Last Admin: 11/05/19 08:43 Dose: 5 mg Metoprolol Tartrate (Lopressor) 50 mg PO Q12HR [facility] Stop: 12/29/19 20:59 Last Admin: 11/05/19 08:43 Dose: 50 mg Multivitamins/Vitamin C (Theragran) 1 tab PO DAILY [facility] Stop: 12/30/19 08:59 Last Admin: 11/05/19 08:43 Dose: 1 tab Quetiapine Fumarate (Seroquel) 12.5 mg PO HS [facility]; Protocol Stop: 01/03/20 20:59 Last Admin: 11/04/19 20:48 Dose: 12.5 mg General: weak HEENT: NC/AT, PERRLA Neck: Supple, No JVD Lungs: CTAB Cardiovascular: RRR, Normal S1, Normal S2 Abdomen: soft, non-tender Extremities: clear Neurological: no change Internal Medicine Assmt/Plan - Assessment Assessment: 1. HTN 2. HLD 3. Dementia - Plan Plan: continue cozaar and lopressor BP still slightly labile will continue to monitor continue supportive care reviewed medical records d/w r.n. Nutritional Asmnt/Malnutr-PDOC - Dietary Evaluation Malnutrition Findings (Please click <Entered> for more info): Nutritional Asmnt/Malnutrition Start: 11/03/19 11: 47 Text: Status: Complete Freq: Protocol: Document 11/03/19 11:47 LEO (Rec: 11/03/19 11:49 LEO [id number]) Nutritional Asmnt/Malnutrition Patient General Information Nutritional Screening Moderate Risk Diagnosis Acute Psychosis associated with Advanced Dementia Pertinent Medical Hx/Surgical Hx HTN, Hyperlipidemia, Dementia Subjective Information Pt is a 84-year-old female admitted from living by herself on 10/29 d/t acute psychosis associated with advanced dementia. Pt is eating an estimated 100% of meals Per Meal/Nutrition Activity Record. Dietary is currently providing an estimated 2150 kcals and 108 gm Pro to meet 100+% kcal and 100+% Pro needs. Anthropometrics HT: 53 WT: 144 LB (65.45 kg) BMI: 25.58 (Overweight) GI/ Skin Integrity GI: WNL, Soft, Non-tender BM: 11/01 x1 I/O: 1240/Not Noted Skin: WNL, Intact Oh: 21 Diet Order: Cardiac Estimated Energy Needs: ( Geriatric, CBW) 6791-7031 kcals (25-30 kcals/ kg) 65-80g Pro (1.0-1.2 g/kg) 2302-8823 ml (25-30 ml/kg) Current Diet Order/ Nutrition Support Cardiac Pertinent Medications Maalox, Lipitor, Valium, Cozaar, MOM (PRN), Theragran Pertinent Labs 10/31: Glucose 134, Cholesterol 313, Triglycerides 216, LDL 216 10/29: Glucose 119, Urine Ketones- trace Nutritional Hx/Data Height 1.6 m Height (Calculated Centimeters) 160.0 Current Weight (lbs) 65.317 kg Weight (Calculated Kilograms) 65.3 Weight (Calculated Grams) 83415.3 [place] Body Weight 115 LB (52.27 kg) % [place] Body Weight 125 Body Mass Index (BMI) 25.4 Weight Status Overweight GI Symptoms Last BM 11/01 x1 Skin Integrity/Comment: Skin: WNL, Intact Oh: 21 Current %PO Good (75-100%) Estimated Nutritional Goals BEE in Kcals: Using Current wt Calories/Kcals/Kg 25-30 Kcals Calculated 0934-7892 Protein: Using Current wt Protein g/k.0-1.2 Protein Calculated 65-80 Fluid: ml 3821-3436 ml (25-30 ml/kg) Nutritional Problem No current Nutrition Prob Problem No nutrition diagnosis at this time. Etiology N/A Signs/Symptoms: N/A Malnutrition Related to Morbid Obesity Malnutrition related to morbid obesity No Intervention/Recommendation Comments Continue Cardiac diet as tolerated. Expected Outcomes/Goals Expected Outcomes/Goals 1.PO intake to continue to meet >75% of estimated nutritional needs. 2.Monitor PO intake, wt, nutrition related labs, and skin integrity. 3.F/U as low risk in 7-10 days , 11/09-11/12.
[2019-11-05] MEDS: Atorvastatin Calcium 10 MG TAB PO SCH (21:21)
[2019-11-06] MEDS: Escitalopram Oxalate 5 mg Tab PO SCH (08:38)
[2019-11-06] MEDS: Multivitamin Tab PO SCH (08:39)
--- NOTE | 2019-11-06 17:43 | Internal Medicine Prog Note ---
Internal Medicine Subjective - Subjective Service Date: 11/06/19 Patient seen and examined:: without staff Patient is:: awake Per staff patient has:: no adverse event, no episodes of fall Internal Medicine Objective - Results Result Diagrams: 11/01/19 09:49 11/01/19 09:49 Recent Labs: Laboratory Last Values WBC 6.9 K/uL (4.8-10.8) 11/01/19 09:49 RBC 5.34 MIL/uL (4.2-6.2) 11/01/19 09:49 Hgb 13.8 gm/dL (12-16) 11/01/19 09:49 Hct 43.3 % (41.0-60) 11/01/19 09:49 MCV 81.1 fl (81-100) 11/01/19 09:49 MCH 25.9 pg (27.0-31.0) L 11/01/19 09:49 MCHC Differential 31.9 pg (28.0-36.0) 11/01/19 09:49 RDW 15.0 % (11.5-20.0) 11/01/19 09:49 Plt Count 255 Th/cmm (150-400) 11/01/19 09:49 MPV 8.4 fl 11/01/19 09:49 Neutrophils % 55.4 % (40.0-80.0) 11/01/19 09:49 Lymphocytes % 38.9 % (20.0-50.0) 11/01/19 09:49 Monocytes % 3.7 % (2.0-10.0) 11/01/19 09:49 Eosinophils % 1.6 % (0.0-5.0) 11/01/19 09:49 Basophils % 0.4 % (0.0-2.0) 11/01/19 09:49 Sodium 141 mmol/L (136-145) 11/01/19 09:49 Potassium 4.1 mmol/L (3.5-5.1) 11/01/19 09:49 Chloride 105 mmol/L (98-107) 11/01/19 09:49 Carbon Dioxide 30 mmol/L (23-29) H 11/01/19 09:49 Anion Gap 10 (5-15) 11/01/19 09:49 BUN 20 mg/dL (8-21) 11/01/19 09:49 Creatinine 0.84 mg/dL (0.70-1.30) 11/01/19 09:49 Glucose 134 mg/dL (70-99) H 11/01/19 09:49 Calcium 9.6 mg/dL (8.4-10.2) 11/01/19 09:49 Total Bilirubin 0.6 mg/dL (0.0-1.0) 11/01/19 09:49 AST 12 U/L (10-37) 11/01/19 09:49 ALT 17 U/L (12-78) 11/01/19 09:49 Alkaline Phosphatase 69 U/L (46-116) 11/01/19 09:49 Total Protein 7.2 g/dL (6.4-8.3) 11/01/19 09:49 Albumin 3.7 g/dL (3.4-5.0) 11/01/19 09:49 Triglycerides 216 mg/dL (<150) H 10/30/19 12:11 Cholesterol 313 mg/dL (<200) H 10/30/19 12:11 LDL Cholesterol Direct 216 mg/dL (75-193) H 10/30/19 12:11 HDL Cholesterol 49 mg/dL (23-92) 10/30/19 12:11 - Physical Exam Vitals and I&O: Vital Signs Temp 97.4 F 11/06/19 14:00 Pulse 57 11/06/19 14:00 Resp 18 11/06/19 14:00 BP 166/77 11/06/19 14:00 Pulse Ox 97 11/06/19 14:00 Intake & Output 11/05/19 11/06/19 11/06/19 18:59 06:59 18:59 Intake Total 600 240 Balance 600 240 Intake: Oral 600 240 Other: # Voids 3 2 # Bowel Movements 1 Active Medications: Current Medications Acetaminophen (Tylenol) 650 mg PO Q4H PRN PRN Reason: Pain (Mild 1-3) Stop: 12/29/19 17:51 Last Admin: 11/03/19 16:06 Dose: 650 mg Al Hydrox/Mg Hydrox/Simethicone (Maalox) 30 ml PO Q4HR PRN PRN Reason: GI DISTRESS Stop: 12/29/19 17:51 Atorvastatin Calcium (Lipitor) 20 mg PO HS [facility] Stop: 12/29/19 20:59 Last Admin: 11/05/19 21:21 Dose: 20 mg Donepezil HCl (Aricept) 5 mg PO DAILY [facility] Stop: 01/03/20 08:59 Last Admin: 11/06/19 08:38 Dose: 5 mg Escitalopram Oxalate (Lexapro) 5 mg PO DAILY [facility]; Protocol Stop: 01/01/20 08:59 Last Admin: 11/06/19 08:38 Dose: 5 mg Lorazepam (Ativan) 0.5 mg PO Q4HR PRN; Protocol PRN Reason: Anxiety Stop: 11/29/19 17:51 Last Admin: 11/04/19 16:52 Dose: 0.5 mg Losartan Potassium (Cozaar) 50 mg PO DAILY [facility] Stop: 12/30/19 08:59 Last Admin: 11/06/19 08:38 Dose: 50 mg Magnesium Hydroxide (Milk Of Magnesia) 30 ml PO HS PRN PRN Reason: Constipation Memantine (Namenda) 5 mg PO BID [facility] Stop: 01/02/20 16:59 Last Admin: 11/06/19 16:22 Dose: 5 mg Metoprolol Tartrate (Lopressor) 50 mg PO Q12HR [facility] Stop: 12/29/19 20:59 Last Admin: 11/06/19 08:39 Dose: 50 mg Multivitamins/Vitamin C (Theragran) 1 tab PO DAILY [facility] Stop: 12/30/19 08:59 Last Admin: 11/06/19 08:39 Dose: 1 tab Quetiapine Fumarate (Seroquel) 12.5 mg PO HS [facility]; Protocol Stop: 01/03/20 20:59 Last Admin: 11/05/19 21:21 Dose: 12.5 mg General: weak HEENT: NC/AT, PERRLA Neck: Supple, No JVD Lungs: CTAB Cardiovascular: RRR, Normal S1, Normal S2 Abdomen: soft, non-tender Extremities: clear Neurological: no change Internal Medicine Assmt/Plan - Assessment Assessment: 1. HTN 2. HLD 3. Dementia - Plan Plan: continue cozaar and lopressor BP still slightly labile will continue to monitor continue supportive care reviewed medical records d/w r.n. Nutritional Asmnt/Malnutr-PDOC - Dietary Evaluation Malnutrition Findings (Please click <Entered> for more info): Nutritional Asmnt/Malnutrition Start: 11/03/19 11: 47 Text: Status: Complete Freq: Protocol: Document 11/03/19 11:47 LEO (Rec: 11/03/19 11:49 LEO [id number]) Nutritional Asmnt/Malnutrition Patient General Information Nutritional Screening Moderate Risk Diagnosis Acute Psychosis associated with Advanced Dementia Pertinent Medical Hx/Surgical Hx HTN, Hyperlipidemia, Dementia Subjective Information Pt is a 84-year-old female admitted from living by herself on 10/29 d/t acute psychosis associated with advanced dementia. Pt is eating an estimated 100% of meals Per Meal/Nutrition Activity Record. Dietary is currently providing an estimated 2150 kcals and 108 gm Pro to meet 100+% kcal and 100+% Pro needs. Anthropometrics HT: 53 WT: 144 LB (65.45 kg) BMI: 25.58 (Overweight) GI/ Skin Integrity GI: WNL, Soft, Non-tender BM: 11/01 x1 I/O: 1240/Not Noted Skin: WNL, Intact Oh: 21 Diet Order: Cardiac Estimated Energy Needs: ( Geriatric, CBW) 1501-3897 kcals (25-30 kcals/ kg) 65-80g Pro (1.0-1.2 g/kg) 7893-3375 ml (25-30 ml/kg) Current Diet Order/ Nutrition Support Cardiac Pertinent Medications Maalox, Lipitor, Valium, Cozaar, MOM (PRN), Theragran Pertinent Labs 10/31: Glucose 134, Cholesterol 313, Triglycerides 216, LDL 216 10/29: Glucose 119, Urine Ketones- trace Nutritional Hx/Data Height 1.6 m Height (Calculated Centimeters) 160.0 Current Weight (lbs) 65.317 kg Weight (Calculated Kilograms) 65.3 Weight (Calculated Grams) 03881.3 [place] Body Weight 115 LB (52.27 kg) % [place] Body Weight 125 Body Mass Index (BMI) 25.4 Weight Status Overweight GI Symptoms Last BM 11/01 x1 Skin Integrity/Comment: Skin: WNL, Intact Oh: 21 Current %PO Good (75-100%) Estimated Nutritional Goals BEE in Kcals: Using Current wt Calories/Kcals/Kg 25-30 Kcals Calculated 5010-1051 Protein: Using Current wt Protein g/k.0-1.2 Protein Calculated 65-80 Fluid: ml 6448-7255 ml (25-30 ml/kg) Nutritional Problem No current Nutrition Prob Problem No nutrition diagnosis at this time. Etiology N/A Signs/Symptoms: N/A Malnutrition Related to Morbid Obesity Malnutrition related to morbid obesity No Intervention/Recommendation Comments Continue Cardiac diet as tolerated. Expected Outcomes/Goals Expected Outcomes/Goals 1.PO intake to continue to meet >75% of estimated nutritional needs. 2.Monitor PO intake, wt, nutrition related labs, and skin integrity. 3.F/U as low risk in 7-10 days , 11/09-11/12.
--- NOTE | 2019-11-06 19:09 | Progress Notes ---
DATE: 11/06/2019 SUBJECTIVE: Staff was spoken to. The patient is interviewed. The patient is isolative and withdrawn. The patient is still having difficult time to cope with the stress. The patient is still confused, but not presenting with any threats to harm self or others. The patient's sleep is noted to be poor. Appetite seems to be improving. No side effects to the medications are noted. The patient is being closely monitored with a lower dose of the Lexapro and the patient is reported to have been accepted at [facility] and have been trying to coordinate the care with the family. ASSESSMENT: The patient is still demented and depressed. PLAN: To continue the patient with the supportive therapy and followup. JOB# [id number]
[2019-11-06] MEDS: Atorvastatin Calcium 10 MG TAB PO SCH (21:16)
[2019-11-07] MEDS: Multivitamin Tab PO SCH (08:45)
[2019-11-07] MEDS: Escitalopram Oxalate 5 mg Tab PO SCH (08:51)
--- NOTE | 2019-11-07 16:48 | Progress Notes ---
DATE: 11/07/2019 PSYCHIATRIC PROGRESS NOTE SUBJECTIVE: Staff was spoken to. The patient is interviewed. Mood is noted to be anxious. The patient is isolative and withdrawn. The patient is confused and pacing most of the time on the unit. Insight and judgment are noted to be still impaired. Impulse control seems to be improving. The patient has no place to return to. PLAN: To continue the patient with the current medications. I encouraged the patient to verbalize the concerns rather than to act out. The patient is currently on the Lexapro. Plan to continue the patient on followup. JOB# [id number]
--- NOTE | 2019-11-07 19:07 | Progress Notes ---
DATE: 11/07/2019 PSYCHOLOGY PROGRESS NOTE SUBJECTIVE: The patient is seen in the activity/dining area. The patient has her head in her hands and is tearful. Case has been discussed with staff. The patient seems to be withdrawn as well as depressed. The patient is confused and not understanding why she is continuing to be hospitalized. The patient is confused about whether she is returning home or going to a placement. The patient was unable to clearly verbalize reasons for her depression and her tearfulness. Staff indicates the patient has been accepted at [facility]. OBJECTIVE: Mood is depressed. Affect is labile and tearful. Thought process shows to be confused. The patient denied any hallucinations or delusions. The patient's behavior has been withdrawn and isolative. ASSESSMENT: The patient's depression and dementia persist. The patient has been accepted at [facility]. PLAN: As above. The adult protective caseworker has been trying to coordinate the discharge and placement with the family. We provided supportive therapy and included coping strategies for phase of life issues as well as adjustment for the patient's placement in a facility and the loss of her independence with respect to her independent lifestyle. We also provided adjustment to the patient's limitations and restrictions that she will be experiencing at her new placement. We encouraged the patient to continue the dialogue with the psychologist and the psychiatrist at her placement. We will follow up in 2 days if the patient is still admitted on the unit to continue the present treatment. JOB# [id number] AURELIO
[2019-11-07] MEDS: Atorvastatin Calcium 10 MG TAB PO SCH (21:48)
[2019-11-08] MEDS: Multivitamin Tab PO SCH (08:29)
[2019-11-08] MEDS: Escitalopram Oxalate 5 mg Tab PO SCH (08:30)
--- NOTE | 2019-11-08 15:07 | Progress Notes ---
DATE: 11/08/2019 SUBJECTIVE: Staff was spoken to. The patient is interviewed. Mood is noted to be anxious. The patient is pacing on the unit. The patient is not presenting with any threats to harm self or others. Insight and judgment at this time are noted to be fair. Impulse control seems to be fair. However, the patient has been having problem with the memory. ASSESSMENT: The patient is stabilizing. PLAN: To discharge the patient possibly tomorrow for followup on outpatient basis. JOB# [id number]
[2019-11-08] MEDS: Atorvastatin Calcium 10 MG TAB PO SCH (20:40)
[2019-11-09] MEDS: Escitalopram Oxalate 5 mg Tab PO SCH (08:56)
[2019-11-09] MEDS: Multivitamin Tab PO SCH (08:57)
--- NOTE | 2019-11-09 09:51 | Discharge Summary ---
DATE OF DISCHARGE: 11/09/2019 IDENTIFYING DATA: The patient is an 84-year-old woman living by herself. JUSTIFICATION OF HOSPITALIZATION: The patient is admitted on a voluntary basis in view of her acute psychosis, confusion and disorientation. CHIEF COMPLAINT: "I don't know, they brought me in here. DIAGNOSES AT THE TIME OF ADMISSION: AXIS I: 1. Unspecified psychosis. 2: Dementia and behavioral changes secondary to dementia. AXIS II: None. AXIS III: Hyperlipidemia and hypertension. HOSPITAL COURSE AND RESPONSE TO TREATMENT: The patient has been observed on inpatient unit, provided with supportive psychotherapy. The patient has been seen by Dr. Bill and Dr. Dominguez for medical workup. Blood work done at the time of hospitalization is noted to be within normal limits. No major intervention was needed. The patient has been closely monitored on the unit. Provided with supportive psychotherapy. The patient has been placed on escitalopram 5 mg for her depression and the patient was given the donepezil and memantine and also has been placed on 12.5 mg of the Seroquel at bedtime and the patient started to do fairly well. The paranoia subsided. The patient started to make some sense, but the patient has no place to return to and hence the patient has been finally discharged to [facility] for further followup. MENTAL STATUS EXAMINATION AT THE TIME OF DISCHARGE: The patient's mood is noted to be less irritable. Affect is appropriate. Not suicidal or homicidal. Insight and judgment are noted to be improving. Impulse control is noted to be fair. The patient is not presenting with any threats to harm self or others and the patient is willing to comply with the treatment on an outpatient basis. PROGNOSIS: At the time of discharge is noted to be fair with the treatment. JOB# [id number]
--- NOTE | 2019-11-09 15:57 | Internal Medicine Prog Note ---
Internal Medicine Subjective - Subjective Service Date: 11/09/19 Patient seen and examined:: with staff Patient is:: awake Per staff patient has:: no adverse event, no episodes of fall Internal Medicine Objective - Results Result Diagrams: 11/01/19 09:49 11/01/19 09:49 Recent Labs: Laboratory Last Values WBC 6.9 K/uL (4.8-10.8) 11/01/19 09:49 RBC 5.34 MIL/uL (4.2-6.2) 11/01/19 09:49 Hgb 13.8 gm/dL (12-16) 11/01/19 09:49 Hct 43.3 % (41.0-60) 11/01/19 09:49 MCV 81.1 fl (81-100) 11/01/19 09:49 MCH 25.9 pg (27.0-31.0) L 11/01/19 09:49 MCHC Differential 31.9 pg (28.0-36.0) 11/01/19 09:49 RDW 15.0 % (11.5-20.0) 11/01/19 09:49 Plt Count 255 Th/cmm (150-400) 11/01/19 09:49 MPV 8.4 fl 11/01/19 09:49 Neutrophils % 55.4 % (40.0-80.0) 11/01/19 09:49 Lymphocytes % 38.9 % (20.0-50.0) 11/01/19 09:49 Monocytes % 3.7 % (2.0-10.0) 11/01/19 09:49 Eosinophils % 1.6 % (0.0-5.0) 11/01/19 09:49 Basophils % 0.4 % (0.0-2.0) 11/01/19 09:49 Sodium 141 mmol/L (136-145) 11/01/19 09:49 Potassium 4.1 mmol/L (3.5-5.1) 11/01/19 09:49 Chloride 105 mmol/L (98-107) 11/01/19 09:49 Carbon Dioxide 30 mmol/L (23-29) H 11/01/19 09:49 Anion Gap 10 (5-15) 11/01/19 09:49 BUN 20 mg/dL (8-21) 11/01/19 09:49 Creatinine 0.84 mg/dL (0.70-1.30) 11/01/19 09:49 Glucose 134 mg/dL (70-99) H 11/01/19 09:49 Calcium 9.6 mg/dL (8.4-10.2) 11/01/19 09:49 Total Bilirubin 0.6 mg/dL (0.0-1.0) 11/01/19 09:49 AST 12 U/L (10-37) 11/01/19 09:49 ALT 17 U/L (12-78) 11/01/19 09:49 Alkaline Phosphatase 69 U/L (46-116) 11/01/19 09:49 Total Protein 7.2 g/dL (6.4-8.3) 11/01/19 09:49 Albumin 3.7 g/dL (3.4-5.0) 11/01/19 09:49 Triglycerides 216 mg/dL (<150) H 10/30/19 12:11 Cholesterol 313 mg/dL (<200) H 10/30/19 12:11 LDL Cholesterol Direct 216 mg/dL (75-193) H 10/30/19 12:11 HDL Cholesterol 49 mg/dL (23-92) 10/30/19 12:11 Coronavirus (PCR) Negative (Negative) 11/05/19 15:35 - Physical Exam Vitals and I&O: Vital Signs Temp 97.9 F 11/09/19 14:09 Pulse 54 11/09/19 14:09 Resp 20 11/09/19 14:09 BP 144/56 11/09/19 14:09 Pulse Ox 97 11/09/19 14:09 Intake & Output 11/08/19 11/09/19 11/09/19 18:59 06:59 18:59 Intake Total 950 360 Balance 950 360 Intake: Oral 950 360 Other: # Voids 3 1 # Bowel Movements 0 0 Active Medications: Current Medications Acetaminophen (Tylenol) 650 mg PO Q4H PRN PRN Reason: Pain (Mild 1-3) Stop: 12/29/19 17:51 Last Admin: 11/08/19 22:59 Dose: 650 mg Al Hydrox/Mg Hydrox/Simethicone (Maalox) 30 ml PO Q4HR PRN PRN Reason: GI DISTRESS Stop: 12/29/19 17:51 Atorvastatin Calcium (Lipitor) 20 mg PO HS [facility] Stop: 12/29/19 20:59 Last Admin: 11/08/19 20:40 Dose: 20 mg Donepezil HCl (Aricept) 5 mg PO DAILY [facility] Stop: 01/03/20 08:59 Last Admin: 11/09/19 08:57 Dose: 5 mg Escitalopram Oxalate (Lexapro) 5 mg PO DAILY [facility]; Protocol Stop: 01/01/20 08:59 Last Admin: 11/09/19 08:56 Dose: 5 mg Losartan Potassium (Cozaar) 50 mg PO DAILY [facility] Stop: 12/30/19 08:59 Last Admin: 11/09/19 09:54 Dose: 50 mg Magnesium Hydroxide (Milk Of Magnesia) 30 ml PO HS PRN PRN Reason: Constipation Memantine (Namenda) 5 mg PO BID [facility] Stop: 01/02/20 16:59 Last Admin: 11/09/19 08:58 Dose: 5 mg Metoprolol Tartrate (Lopressor) 50 mg PO Q12HR [facility] Stop: 12/29/19 20:59 Last Admin: 11/09/19 08:57 Dose: 50 mg Multivitamins/Vitamin C (Theragran) 1 tab PO DAILY [facility] Stop: 12/30/19 08:59 Last Admin: 11/09/19 08:57 Dose: 1 tab Quetiapine Fumarate (Seroquel) 12.5 mg PO HS [facility]; Protocol Stop: 01/03/20 20:59 Last Admin: 11/08/19 20:40 Dose: 12.5 mg General: weak HEENT: NC/AT, PERRLA Neck: Supple, No JVD Lungs: CTAB Cardiovascular: RRR, Normal S1, Normal S2 Abdomen: soft, non-tender Extremities: clear Neurological: no change Internal Medicine Assmt/Plan - Assessment Assessment: 1. HTN 2. HLD 3. Dementia - Plan Plan: continue cozaar and lopressor BP still slightly labile will continue to monitor continue supportive care reviewed medical records d/w r.n. Nutritional Asmnt/Malnutr-PDOC - Dietary Evaluation Malnutrition Findings (Please click <Entered> for more info): Nutritional Asmnt/Malnutrition Start: 11/03/19 11: 47 Text: Status: Complete Freq: Protocol: Document 11/03/19 11:47 LEO (Rec: 11/03/19 11:49 TOMYCHOLO [id number]) Nutritional Asmnt/Malnutrition Patient General Information Nutritional Screening Moderate Risk Diagnosis Acute Psychosis associated with Advanced Dementia Pertinent Medical Hx/Surgical Hx HTN, Hyperlipidemia, Dementia Subjective Information Pt is a 84-year-old female admitted from living by herself on 10/29 d/t acute psychosis associated with advanced dementia. Pt is eating an estimated 100% of meals Per Meal/Nutrition Activity Record. Dietary is currently providing an estimated 2150 kcals and 108 gm Pro to meet 100+% kcal and 100+% Pro needs. Anthropometrics HT: 53 WT: 144 LB (65.45 kg) BMI: 25.58 (Overweight) GI/ Skin Integrity GI: WNL, Soft, Non-tender BM: 11/01 x1 I/O: 1240/Not Noted Skin: WNL, Intact Oh: 21 Diet Order: Cardiac Estimated Energy Needs: ( Geriatric, CBW) 3771-3210 kcals (25-30 kcals/ kg) 65-80g Pro (1.0-1.2 g/kg) 7903-1553 ml (25-30 ml/kg) Current Diet Order/ Nutrition Support Cardiac Pertinent Medications Maalox, Lipitor, Valium, Cozaar, MOM (PRN), Theragran Pertinent Labs 10/31: Glucose 134, Cholesterol 313, Triglycerides 216, LDL 216 10/29: Glucose 119, Urine Ketones- trace Nutritional Hx/Data Height 1.6 m Height (Calculated Centimeters) 160.0 Current Weight (lbs) 65.317 kg Weight (Calculated Kilograms) 65.3 Weight (Calculated Grams) 63039.3 [place] Body Weight 115 LB (52.27 kg) % [place] Body Weight 125 Body Mass Index (BMI) 25.4 Weight Status Overweight GI Symptoms Last BM 11/01 x1 Skin Integrity/Comment: Skin: WNL, Intact Oh: 21 Current %PO Good (75-100%) Estimated Nutritional Goals BEE in Kcals: Using Current wt Calories/Kcals/Kg 25-30 Kcals Calculated 2957-5981 Protein: Using Current wt Protein g/k.0-1.2 Protein Calculated 65-80 Fluid: ml 5431-5771 ml (25-30 ml/kg) Nutritional Problem No current Nutrition Prob Problem No nutrition diagnosis at this time. Etiology N/A Signs/Symptoms: N/A Malnutrition Related to Morbid Obesity Malnutrition related to morbid obesity No Intervention/Recommendation Comments Continue Cardiac diet as tolerated. Expected Outcomes/Goals Expected Outcomes/Goals 1.PO intake to continue to meet >75% of estimated nutritional needs. 2.Monitor PO intake, wt, nutrition related labs, and skin integrity. 3.F/U as low risk in 7-10 days , 11/09-11/12.
--- NOTE | 2019-11-10 12:36 | Progress Notes ---
DATE: 11/07/2019 PSYCHOLOGY PROGRESS NOTE SUBJECTIVE: The patient is seen in her room and interviewed. Case is discussed with staff. Staff reports the patient seems to be doing fairly well. The patient is compliant with her medication. The patient continues to seem somewhat confused about her circumstances, but is following through with her treatment here on the unit. OBJECTIVE: Mood is improving and is less irritable. Affect is mood congruent. The patient denied any suicidal thoughts, plan or intention. The patient denies any hallucinations or delusions. The patient is answering questions relevantly at times with periods of confusion. The patient has been compliant with treatment according to the staff. ASSESSMENT: The patient seems to be approaching baseline and is stabilizing. PLAN: We provided supportive psychotherapy including coping strategies for phase of life issues. We provided adjustment for placement in a nursing home facility. We provided adjustment for the patient to understand her physical and functional limitations and restrictions and the need for placement versus returning home. We provided coping strategies to assist the patient in reducing her depression. We provided reality integration as well. The patient seems to be accepting the current treatment recommendations and discharge plans. No followup is indicated as the patient is most likely discharging today. Thank you, Dr. Meyers for this consult and the opportunity to participate with you in this patient's care. [facility]# [id number] AURELIO
== END 2019-11-09 15:45 | DRG 884 ==
LOC: UNDOADMIN 17:29 → GERO 17:29
PROVIDERS: ADMIT Psychiatry & Neurology Psychiatry; ATTEND Psychiatry & Neurology Psychiatry
DX: F03.91 Unspecified dementia, unspecified severity, with behavioral disturbance (principal); E78.5 Hyperlipidemia, unspecified; I10 Essential (primary) hypertension; F29 Unspecified psychosis not due to a substance or known physiological condition
CPT/HCPCS: 36415-UA; 80053-TC; 80061-TC; 83036-90; 85025-TC; 90899; G0410; U0003-CS; Z7610